=== PATIENT | male | born 1970 | race Caucasian/White ===

== ENCOUNTER 2018-06-14 13:16 | Emergency (ER) | payer MEDICAID ==
[~2018-06-14] VITALS: Ht 177.8 cm; Wt 73.0 kg
[2018-06-14 13:22] VITALS: BP 153/96
[2018-06-14] MEDS ORDERED: TETanus/Pertussis (Acell)/Diphther VAC/PF (Tdap-Adult) 0.5ml syringe IMVAC ONE (14:35)
== END 2018-06-14 15:09 | disposition home or self-care (01) ==
LOC: ER 13:17
DX: S90.851A Superficial foreign body, right foot, initial encounter (principal); F12.90 Cannabis use, unspecified, uncomplicated; W45.8XXA Other foreign body or object entering through skin, initial encounter; Y93.89 Activity, other specified; Y92.89 Other specified places as the place of occurrence of the external cause; Y99.8 Other external cause status
CPT/HCPCS: 10120; 73630; 90471; 90715; 99284; A6255

== ENCOUNTER 2025-07-18 18:06 | Inpatient (IN) | payer MEDICAID ==
[~2025-07-18] VITALS: Ht 177.8 cm; Wt 77.2 kg
[2025-07-18] VITALS (7 sets, daily range): BP systolic 101–115; BP diastolic 62–82; PULSE 14–122; RESP 19–46; O2SAT 95–100
--- NOTE | 2025-07-18 18:17 | ELECTROCARDIOGRAPH REPORT ---
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 Meng Stover Measurements Intervals [place] Rate: 125 P: 43 IA: 140 QRS: -42 QRSD: 91 T: 52 QT: 291 QTc: 420 Interpretive Statements Sinus tachycardia Probable left atrial enlargement Probable inferior infarct, recent Posterior infarct, acute (LCx) Abnormal lateral Q waves ST depression V1-V3, suggest recording posterior leads Artifact in lead(s) II,III,aVL,aVF,V3,V4 Electronically Signed On 07-22-2025 19:21:[address] Meng Stover Please click the below link to view image of tracing.
[2025-07-18] MEDS: albuterol 2.5 MG/3 ML nebule NEB ONE (18:24)
[2025-07-18] MEDS: metoprolol tartrate 1mg/ml inj IV ONE (18:25)
[2025-07-18] MEDS: dexamethasone sod phosphate 10mg/ml inj IV ONE (18:25)
[2025-07-18] MEDS ORDERED: heparin 10,000 units/1 ML INJ IV ONE (18:25)
[2025-07-18 18:34] LABS: MEAN PLATELET VOLUME 7.5 FL (7.4-10.4); RED CELL DISTRIBUTION WIDTH 15.9 % (11.5-14.5)
[2025-07-18] MEDS: morphine 4 MG/ML inj SYRINge IV ONE (18:36)
[2025-07-18] MEDS: magnesium sulf-water 2g/50mL 50 ML IV ONE (18:36)
[2025-07-18 18:37] LABS: ABG BASE EXCESS -8.5 mmol/L (-2.0-3.0); ABG HCO3 18.0 mmol/L (21.0-28.0); ABG OXYGEN SATURATION 98.7 % (94.0-98.0); ABG PCO2 (T) 41.0 mmHg (35.0-48.0); ABG PH (T) 7.262 (7.350-7.450); ABG PO2 (T) 164.4 mmHg (83.0-108.0); FCOHb 0.3 % (0.5-1.5); FHHb 1.3 % (0.0-5.0); FIO2 50.0 mmHg/%; FMetHb 0.1 % (0.0-1.5); FO2Hb 98.3 % (94.0-98.0); MODE MASK - BIPAP; PATIENT TEMPERATURE 37.2; TOTAL HEMOGLOBIN 14.0 G/dl (13.5-17.5)
[2025-07-18] MEDS: heparin 10,000 units/1 ML INJ IV ONE (18:37)
[2025-07-18] MEDS: heparin 25,000 UNIT/250ml bag 250 ML IV PRN (18:38)
[2025-07-18] MEDS: MESSAGE TO NURSING IV ONE (18:39)
[2025-07-18 18:42] LABS: APTT 25 SECONDS (22-32); INR 1.1 INR
--- NOTE | 2025-07-18 18:43 | Physician Documentation ---
History of Present Illness ~ Chief Complaint: Respiratory Distress Stated Complaint: DIFF BREATHING Time Seen by MD: 18:10 HPI This is a 55-year-old gentleman who presented for evaluation of shortness a breath for the last 24 hours. Began suddenly without any obvious provocation. Never experienced anything like that. Denies any current chest pain. No particular palliating factors, it is exertional and positional. He did not attempt to treat it. It is unclear why he waited 24 hours before presenting to the emergency department. I he reports history of smoking, methamphetamine use. History, review of systems, physical examination are severely limited by clinical condition. Medication Reconciliation Allergies: Coded Allergies: No Known Allergies (Unverified , 06/14/18) Past Medical History Past Medical History: Kidney Stones Past Surgical History: no surgical history Smoking Status: Current every day smoker Alcohol Use: None Drug Use: marijuana Lives with: Spouse Lives In: Home Review of Systems ROS Limited as above Physical Exam Vital Signs: Temperature: 97.9, Source: Axillary, Heart Rate: 122, Respiratory Rate: 46, BP: 201/132, Pulse Oximetry: 100, Weight: 82.100 Oxygen Flow Rate: 8.0 Physical Exam GENERAL: Awake, alert, oriented, GCS 15, severe respiratory distress, mottled and moribund appearing, answers questions in single words, follows commands appropriately. Brought in from triage in the wheelchair immediately placed in bed four. Myself and full resuscitative team available. HEENT: Atraumatic, normocephalic, pupils equal, extraocular muscles intact, sclerae anicteric, mucus membranes moist, oropharynx is clear, no stridor. NECK: supple, full active range of motion, trachea midline, no thyromegaly, no lymphadenopathy, no JVD. CARDIOVASCULAR: Tachycardic and regular rate/rhythm, no murmurs/gallops/rubs, Pulses are 2+ in all extremities and symmetric. Capillary refill less than 2 seconds. PULMONARY: Severely labored, good air movement severe respiratory distress, speaking in one word sentences, coarse breath sounds bilaterally, no wheezing, no ronchi, bilateral whole lung rales, notable accessory muscle use. GASTROINTESTINAL: Soft, non-tender, non-distended, normal active bowel sounds, no organomegaly, no pulsatile masses, no CVA tenderness. NEUROLOGIC: Lucid with normal mental status. Normal facial symmetry. Moves all extremities symmetrically and with purpose. No truncal ataxia. Speech is fluid without evidence of dysarthria or aphasia, no focal deficits appreciated. MUSCULOSKELETAL: There is full range of motion of all extremities. There is no joint pain or joint swelling or joint erythema. There is no muscle pain or tenderness or swelling. EXTREMITIES: Cool, diaphoretic, mottled, very poorly-perfused, acro and lip cyanosis, no clubbing, no edema, no acute deformities. Skin: Diaphoretic, cool and mottled, old well-healed skin picking lesions consistent with a methamphetamine use admitted with the patient, no jaundice, no petechiae orpurpura. No ecchymosis. PSYCHIATRIC: Understandably anxious affect, normal insight, normal concentration. Focused exam: [] Progress Results/Orders Results/Orders Orders - NATHAN BRAND DO Abg (Arterial Blood Gas) (07/18/25 18:10) ESR (07/18/25 18:10) C-Reactive Protein (07/18/25 18:10) Pt Inr (07/18/25 18:10) PTT (07/18/25 18:10) Culture Blood (07/18/25 18:10) Chest,Single View (07/18/25 18:10) Svn Treatment (07/18/25 18:10) PBNP (07/18/25 18:10) MG (07/18/25 18:10) TSH (07/18/25 18:10) Free T4 (07/18/25 18:10) Monitor (07/18/25 18:10) Saline Lock (07/18/25 18:10) Azithromycin/Ns 500mg/250ml (Zithromax/N (07/18/25 18:10) CMP (07/18/25 18:10) Hs Troponin I W Calculations (07/18/25 18:10) Hs Troponin I W Calculations (07/18/25 20:10) Hs Troponin I W Calculations (07/18/25 21:10) Lacticsepsis (07/18/25 18:10) Magnesium Sulf-Water 2g/50ml (Magnesium (07/18/25 18:10) Heparin 25,000 Unit/250ml Bag (Heparin 2 (07/18/25 18:25) Heparin 10,000 Unit/Ml 1ml (Heparin 10,0 (07/18/25 18:25) Cbc/Diff (07/19/25 03:00) Cbc/Diff (07/20/25 03:00) Cbc/Diff (07/21/25 03:00) Cbc/Diff (07/22/25 03:00) Cbc/Diff (07/23/25 03:00) Nitroglycerin-Tridil 50mg/D5w (Tridil (N (07/18/25 18:35) Completed Orders - NATHAN BRAND DO Electrocardiogram (07/18/25 18:10) Cbc/Diff (07/18/25 18:10) Dexamethasone Inj (Decadron 10mg/Ml Inj) (07/18/25 18:10) Albuterol 2.5mg/3ml Nebule (Proventil 2. (07/18/25 18:10) Metoprolol Tartrate Inj (Lopressor Iv) (07/18/25 18:20) Morphine 4mg/Ml Inj. (Morphine Inj.) (07/18/25 18:20) Heparin 10,000 Unit/Ml 1ml (Heparin 10,0 (07/18/25 18:35) Message To Nursing (07/18/25 18:35) Medications Received in ER Medications (Trade) Dose Ordered Sig/Juli Route PRN Reason Start Time Stop Time Status Last Admin Dose Admin (Decadron 10mg/ ml inj) 10 mg ONCE ONCE IV 07/18/25 18:10 07/18/25 18:17 DC 07/18/25 18:25 10 MG (Proventil 2.5 MG/3ML nebule) 10 mg ONCE ONCE NEB 07/18/25 18:10 07/18/25 18:14 DC 07/18/25 18:24 10 MG (Lopressor IV) 5 mg ONCE ONCE IV 07/18/25 18:20 07/18/25 18:21 DC 07/18/25 18:25 5 MG Vital Signs 07/18/25 07/18/25 07/18/25 07/18/25 18:14 18:24 18:25 18:26 Temp 97.9 Pulse 124 14 105 Resp 43 43 43 B/P (MAP) 209/132 Pulse Ox 60 100 O2 Flow Rate 0 8.0 FiO2 50 07/18/25 18:26 Pulse 122 Resp 46 Pulse Ox 100 Laboratory Tests Test 07/18/25 18:18 07/18/25 18:34 White Blood Count 17.5 H Red Blood Count 5.07 Hemoglobin 14.1 Hematocrit 44.4 Mean Corpuscular Volume 87.6 Mean Corpuscular Hemoglobin 27.9 Mean Corpuscular Hemoglobin Concent 31.8 L Red Cell Distribution Width 15.9 H Platelet Count 527 H Mean Platelet Volume 7.5 Neutrophils (%) (Auto) 55.8 Lymphocytes (%) (Auto) 31.4 Monocytes (%) (Auto) 8.6 Eosinophils (%) (Auto) 3.2 Basophils (%) (Auto) 1.0 Neutrophils # (Auto) 9.7 H Lymphocytes # (Auto) 5.5 H Monocytes # (Auto) 1.5 H Eosinophils # (Auto) 0.6 Basophils # (Auto) 0.2 CBC Comment Coagulation Comments Chemistry Comments Blood Gas Specimen Type Arterial Blood Gas Puncture Site Lr O2 Saturation 98.7 H Arterial Blood pH (Temp corrected) 7.262 L Arterial Blood pCO2 (Temp correct) 41.0 Arterial Blood pO2 (Temp corrected) 164.4 H Arterial Blood PO2/FiO2 Ratio 3.26 Arterial Blood HCO3 18.0 L Arterial Blood Base Excess -8.5 L Arterial Blood Oxyhemoglobin 98.3 H Arterial Blood Carboxyhemoglobin 0.3 L Arterial Blood Methemoglobin 0.1 Arterial Blood Deoxyhemoglobin 1.3 Macario Test Na Blood Gas Hemoglobin 14.0 Blood Gas Temperature 37.2 Blood Gas Modality Mask - bipap FiO2 50.0 EKG/XRAY/CT/US/VASC/MRI EKG : Additional Comment Initial EKG was obtained and interpreted by myself showing sinus tachycardic, rate of 125, normal UT interval, narrow QRS, no QT prolongation, left axis deviation, ST-elevation in two, three, AVF with a ST-depression in the wanted aVL, as well as Q-waves in inferior leads concerning for subacute myocardial infarction. After patient's heart rate was slow down with the beta blockers, it EKG still shows sinus rhythm, 96, normal UT interval, narrow QRS, prolonged QTC of 510, left axis, Q-wave and ST-elevation in two, three, AVF with reciprocal depressions. Both EKGs a concerning for STEMI. Medical Decision Making Findings Facility Status: ED Holds, RME process The plan was discussed with the patient, who demonstrates clear understanding of the plan and is in agreement with the plan unless otherwise noted in the chart. All questions have been answered, all concerns were addressed unless otherwise documented. I was available throughout their ED stay for frequent reassessment and questions. Differential Diagnoses (considered and possible or likely): [ACS, CHF, COPD, pneumonia, occult bacteremia, cardiogenic shock, less likely PE] ??Differential Diagnoses (considered and unlikely, not requiring evaluation currently): [Unlikely pneumothorax] MDM Data Please see [facility] for the following: Independent Historians and external Records Review. Historian: [Patient] Independent Historians: ?[Record review] Medication Management: [Reviewed medication list] Social History and determinants: [Reviewed] Please see the body of the note for the following: Any independent interpretations of ECG, imaging studies. All vitals signs/haemodynamics, ordered tests were independently reviewed and interpreted by myself. 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 reviewed and interpreted by me] Additionally notably showing: [] Tests considered but not ordered include: [] Social Determinants of Health Impact: Patient was evaluated in [facility] [place] to healthcare due to below par ratio of patient to medical providers. [] Comorbid Conditions Impacting Present Evaluation and Care/Treatment: [] Management Discussions with other Healthcare Providers: [] Treatment and Disposition Medication Management (Given or considered): []. See EMR for details Consideration for Hospitalization/Escalation/Deescalation of Care: Admission for observation has been considered, [however the patient is able to tolerate p.o., their symptoms are controlled, they are able to rely on oral medications, and their chief complaint/diagnosis can be managed on outpatient basis.] ?ED Course:?[Date: Jul 18, 2025 Time: 18:19 EKG was obtained and despite of sinus tachycardia consistent with a ST-elevation myocardial infarctions in i nferior leads with a reciprocal depressions in lateral leads, profound Q-waves noted concerning for subacute myocardial infarction. What STEMI was activated. Case was discussed with Dr. Stiles, who recommends slowing him down with beta blockers, aspirin, heparin, nitro drip of he remains hypotensive, we will see patient. ] ?Shared decision making:?[] Code status:?FULL Please see the full Electronic Medical Record for full details of nursing documentation, medications list, other records of complete past medical history and conditions, vital signs, laboratory studies, and any radiologic study interpretations by radiologists. Portions of this note were completed using [employer] dictation software and as a result there may exist minor errors in spelling. I have reviewed elements of past family and social history and agree as included in note. Departure Referrals: NO PRIMARY CARE PROVIDER (PCP) Critical Care Note Critical Care Note CRITICAL CARE TIME: [75] minutes Treatments/Evaluations: Close monitoring and treatment of unstable vital signs, cardiorespiratory, and neurologic status, while maintaining tight balance of fluid, respiratory, and cardiac interventions. This time includes discussing the case with the patient and the patients family. This time does not include all procedures stated elsewhere in this record. This time also includes reviewing old records, labs and radiological studies. This time includes examining and re- examining the patient. Additionally, this time also includes arranging care with admitting and consulting physicians. Signature Scribe Signature: No scribe Attestation: Date: Jul 18, 2025 Time: 18:45 This note accurately reflects clinical decisions, work performed by myself, Nathan Brand, NATHAN SAN DO Jul 18, 2025 18:43
[2025-07-18 18:44] LABS: CREATININE 1.77 MG/DL (0.60-1.10); TOTAL CARBON DIOXIDE 21.0 MMOL/L (24-32); eCRCL 48 ML/MIN; eGFR 40 ML/MIN
[2025-07-18] MEDS ORDERED: midazolam 1 mg/ML 2ml injection ONE (18:50)
[2025-07-18] MEDS ORDERED: heparin 1,000unit/ml 10ml vial 10 ML ONE (18:50)
[2025-07-18] MEDS ORDERED: LIDOcaine 1% (10mg/ml) 2ml vial ONE (18:50)
[2025-07-18] MEDS ORDERED: iohexol 350 MG/ML 50ML vial IV ONE (18:50)
[2025-07-18] MEDS: aspirin 300mg supp.rect RC ONE (18:50)
[2025-07-18] MEDS ORDERED: verapamil 2.5 mg/ml inj IV ONE (18:50)
[2025-07-18] MEDS ORDERED: fentaNYL/PF 50MCG/1 ML 2ML syringe ONE (18:50)
--- NOTE | 2025-07-18 18:50 | RADIOLOGY REPORT ---
EXAM: DI CHEST,SINGLE VIEW HISTORY: Shortness a breath TECHNIQUE: 1 view of the chest COMPARISON: None FINDINGS/IMPRESSION: LUNGS: Central pulmonary vascular congestion with peripheral interstitial edema. Correlate for significant volume overload. Trace possible right-sided pleural effusion. MEDIASTINUM: Unremarkable BONES: No acute osseous abnormality OTHER: None
[2025-07-18] MEDS ORDERED: heparin 1,000 UNITS/NS 500ml 500 ML ONE (18:51)
[2025-07-18] MEDS ORDERED: nitroGLYCERIN 500mcg/5mL D5W 0 ML IV ONE (18:51)
[2025-07-18 18:53] LABS: PRO BRAIN NATRIURETIC PEPTIDE 9780 PG/ML (0-125)
[2025-07-18] MEDS: azithromycin/NS 500mg/250ml 250 ML IV ONE (18:57)
[2025-07-18] MEDS: potassium Cl 20 mEq SR tablet PO STA (19:07)
[2025-07-18] MEDS: nitroGLYCERIN-Tridil 50MG/D5W 250 ML IV PRN (19:11)
--- NOTE | 2025-07-18 21:23 | HISTORY AND PHYSICAL ---
History & Physical - Short Providers to CC ~ History of Present Illness Chief Complain & History SOB This is a 55-year-old gentleman who presented for evaluation of shortness a breath for the last 24 hours. Began suddenly without any obvious provocation. Never experienced anything like that. Denies any current chest pain. No particular palliating factors, it is exertional and positional. He did not attempt to treat it. It is unclear why he waited 24 hours before presenting to the emergency department. pmh substance abuse + troponins and EKG changes refused cath, cardiology aware, started on heparin gtt now on 6 L nasal canula no compliants currently s/p lasix with 800cc UOP s/p azithro Allergies: Coded Allergies: No Known Allergies (Unverified , 06/14/18) Exam Last recorded Lab results: 07/18/25181707/18/251817 Vitals: Vital Signs Date Time Temp Pulse Resp B/P (MAP) Pulse Ox O2 Delivery O2 Flow Rate FiO2 07/18/25 19:11 131/107 07/18/25 18:44 82 32 100 07/18/25 18:26 8.0 07/18/25 18:24 50 07/18/25 18:14 97.9 Diagnostic Data Diagnostic Data: Laboratory Tests Test 07/18/25 18:18 Prothrombin Time 10.9 SECONDS (9.0-12.0) INR International Normalized Ratio 1.1 INR Activated Partial Thromboplast Time 25 SECONDS (22-32) Coagulation Comments Advance Care Planning Advanced Care planning: N/A Problem\Assessment\Plan Problems: (1) Sepsis (2) NSTEMI (non-ST elevated myocardial infarction) (3) Acute respiratory failure Additional Plan NSTEMI ARF r/o sepsis cont heparin gtt cards to evaluate in am regarding ischemia w/up patient agreeable echo empiric zosyn concern for sepsis rodriguez cx check procal trend lactic CCT 60 mins using HIPPA compliant a.v technology AMARILYS MCKENZIE MD Jul 18, 2025 21:23
[2025-07-18] MEDS: piperacillin/tazo 3.375gm/50ml 50 ML IV SCH (21:25)
--- NOTE | 2025-07-18 21:40 | ELECTROCARDIOGRAPH REPORT ---
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 Meng Stover Measurements Intervals [place] Rate: 96 P: 41 VT: 146 QRS: -44 QRSD: 103 T: 51 QT: 403 QTc: 510 Interpretive Statements Sinus rhythm Probable left atrial enlargement Probable inferior infarct, recent Posterior infarct, acute (LCx) Abnormal lateral Q waves Prolonged QT interval Baseline wander in lead(s) I,II,aVR Electronically Signed On 07-22-2025 19:21:[address] Meng Stover Please click the below link to view image of tracing.
[2025-07-18 21:43] LABS: CREATININE 1.64 MG/DL (0.60-1.10); TOTAL CARBON DIOXIDE 25.8 MMOL/L (24-32); eCRCL 52 ML/MIN; eGFR 44 ML/MIN
[2025-07-18 23:48] LABS: LEUKOCYTE ESTERASE ,URINE NEGATIVE (Neg); NITRITES, URINE NEGATIVE (Neg); OCCULT BLOOD,URINE TRACE-INTACT (Neg)
[2025-07-18 23:52] LABS: UA COLLECTION TYPE CLN CATCH MIDSTREAM
[2025-07-18 23:55] LABS: SQUAMOUS EPITHELIAL CELL,UR NONE SEEN /LPF (FEW)
[2025-07-19] VITALS (16 sets, daily range): BP systolic 87–117; BP diastolic 42–86; PULSE 71–90; RESP 15–23; TEMP 97.1–97.7; O2SAT 90–100
[2025-07-19] MEDS: MESSAGE TO NURSING IV ONE ×5 (01:45→23:07)
[2025-07-19] MEDS: heparin 10,000 units/1 ML INJ IV PRN (01:51)
--- NOTE | 2025-07-19 05:00 | CONSULTATION ---
DATE OF CONSULTATION: 07/18/2025 DICTATING PHYSICIAN: ÓSCAR Stiles MD CARDIOLOGY CONSULTATION REQUESTING PHYSICIAN: Nathan Howard DO, ER physician. CARDIOLOGY: ÓSCAR Stiles M.D. HISTORY OF PRESENT ILLNESS: The patient is a 55-year-old male with history of smoking and methamphetamine abuse, who came in for evaluation of shortness of breath for the last 1 to 1-1/2 days. The patient denies any chest pain. He came to the ER and was found to be hypoxic. Blood pressure in the 200/100 range. Chest x-ray showed pulmonary congestion. He was put on BiPAP and Cardiology was consulted. He was found to have a troponin elevated at 3840. EKG showed nonspecific ST-T changes. The patient claims that he does not have any further history of myocardial infarction or congestive heart failure. No history of stent, palpitation, syncopal episode. Denied diabetes, hypertension and hyperlipidemia. However, he is hypertensive today. He has a history of kidney stone. PAST MEDICAL HISTORY: Possible COPD with prior history of smoking. The patient started smoking at age 17 and continues to smoke about 1/2 to 1 pack per day. PAST SURGICAL HISTORY: He has had right inguinal hernia repair at age 2 and 3 years old. FAMILY HISTORY: Father at age 75 with CKD, was on dialysis. Mother at age 70 because of diabetes and complications. SOCIAL HISTORY: He uses marijuana and methamphetamine. Last use of methamphetamine was yesterday. 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 He lives with his . He has 2 sons of his own, 3 from his . His 's name is Shani, telephone #[phone]. MEDICATIONS: At home, none. REVIEW OF SYSTEMS: HEENT: Wears reading glasses, no hearing impairment. RESPIRATORY: Exertional shortness of breath. MUSCULOSKELETAL: Occasional arthralgias. CENTRAL NERVOUS SYSTEM: No stroke, TIA, or seizure. PSYCHIATRIC: No anxiety or depression. SKIN: None. ENDOCRINE: None. PHYSICAL EXAMINATION: GENERAL: The patient is conscious, alert, oriented, on BiPAP, short of breath. VITAL SIGNS: Pulse was 122, dropped down with the medications to 80s and 90s. Blood pressure was 200/100, now is controlled with medications. NECK: Carotids are equally well felt. CARDIAC: Regular rate and rhythm. S1 and S2 normal. No S3 and S4. LUNGS: Showed decreased breath sounds bibasilar. ABDOMEN: Soft. Bowel sounds present. No hepatosplenomegaly. EXTREMITIES: Decreased pulses. LABORATORY DATA: WBC 17.5, hemoglobin 14.1, hematocrit 44.4, platelet count of 527. Sodium 142, potassium 3.1, chloride 103, carbon dioxide 21, BUN 18, creatinine 1.77. Lactic acid 13.5. Calcium 8.9. C-reactive protein 215. ProBNP was 9780. DIAGNOSTIC DATA: Chest x-ray shows pulmonary vascular congestion, congestive heart failure evidence. ASSESSMENT AND PLAN: * A 55-year-old male with sudden onset of shortness of breath with Q-waves in the inferior leads. No obvious ST elevation. Posterior leads did not show ST elevations. Recommended aspirn, heparin, nitroglycerine, beta-blockers. Option of further evaluation of coronary angiography. Risks and benefits and alternative options discussed with the patient. The patient agrees and we will arrange for the same. * Congestive heart failure. Get echocardiogram. Gentle diuresis. Keep him volume euvolemic. * Hypertension and hyperlipidemia. Recommend to keep blood pressure less than 130 and LDL less than 70 mg%. Other comorbidities include chronic tobacco use, possible COPD. * History of methamphetamine, marijuana use, obesity, hypokalemia. Counseled on risk factor modification. * Possible underlying sepsis. The patient will be admitted to the demand generator manager for further evaluation of underlying sepsis. ÓSCAR Stiles MD TID: [id number] RECEIPT: [id number] BREANNA/FRANCO/LESLIE
[2025-07-19 05:38] LABS: MEAN PLATELET VOLUME 7.9 FL (7.4-10.4); RED CELL DISTRIBUTION WIDTH 15.5 % (11.5-14.5)
[2025-07-19 06:20] LABS: CHOL/HDL RATIO 2.4 (0.00-4.99); CREATININE 1.56 MG/DL (0.60-1.10); LDL CHOLESTEROL 54 MG/DL (50-100); PRO BRAIN NATRIURETIC PEPTIDE 8652 PG/ML (0-125); TOTAL CARBON DIOXIDE 24.8 MMOL/L (24-32); eCRCL 55 ML/MIN; eGFR 46 ML/MIN
[2025-07-19] MEDS: aspirin 81mg, enteric-coated 1 TAB TABLET.DR PO SCH (07:10)
[2025-07-19] MEDS: carvedilol 6.25mg tablet PO SCH (08:00)
[2025-07-19] MEDS: nicotine 14mg patch - 24hr TD ONE (13:45)
--- NOTE | 2025-07-19 15:36 | CARDIOLOGY REPORT ---
APPROVED REPORT EXAM: Comprehensive 2D, Doppler, and color-flow Echocardiogram. Patient Location: 2010 A Blood Pressure: 116/79 mmHg Heart Rate: 89 bpm Rhythm: Sinus Rhythm Indications Congestive Heart Failure Shortness of Breath [facility] Detail Drafter: MD Mynor (Consult) Previous echo: None 2D Dimensions RVDd 4.0 cm LA Diam 4.7 cm RA Minor 5.0 cm LVOT Diameter 2.56 (1.8-2.4cm) Ao Asc Diam. 4.05 cm IVC 17.44 mm CO 5.9 L/min M-Mode Dimensions RVDd 3.38 (2.1-3.2cm) Left Atrium(MM) 3.52 (2.5-4.0cm) IVSd 0.88 (0.7-1.1cm) LVDd 5.95 (4.0-5.6cm) Aortic Root 4.57 (2.2-3.7cm) PWd 1.05 (0.7-1.1cm) Aortic Cusp Exc 2.61 (1.5-2.0cm) IVSs 1.98 cm LVDs 4.65 (2.0-3.8cm) FS (%) 20 % PWs 1.40 cm ESV(Teich) 99.4 ml LVEF(%) 41 (>50%) Biplane 2D LA Volumes LA ESV A4C 69.57 mL/m2 Aortic Valve AoV Peak Wiley. 148.5 cm/s AoV VTI 22.5 cm AO Peak GR. 8.8 mmHg AO Mean GR. 4 mmHg LVOT VTI 16.10 cm LVOT Peak Wiley. 98.7 cm/s MARCO(VTI)/BSA 3.68 cm2/m2 MARCO (VTI) 3.68 cm2 AI P 1/2 Time 424 ms Mitral Valve MV E Velocity 116.0 cm/s MV Peak Gr. 8 mmHg MV DECEL TIME 148 ms MV A Velocity 77.8 cm/s MV PHT 48 ms E/A Ratio 1.5 MVA (PHT) 4.58 cm2 MR VMax 649.0 cm/s MV VMax 138.8 cm/s MR PG Max 168.5 mmHg TDI Medial E' P. V 8.41 cm/s E/Medial E' 13.8 Tricuspid Valve TR P. Velocity 358 cm/s RAP ESTIMATE 10 mmHg TR Peak Gr. 51 mmHg RVSP 61 mmHg Pulmonary Vein S1 Velocity 52.9 cm/s D2 Velocity 89.3 cm/s PVa Velocity 37.1 cm/s PVa Duration 120 msec LEFT VENTRICLE The LV is dilated in size with normal wall thickness. Inferior hypokinesia seen. Overall systolic function is [id number] impaired. Overall LVEF is about 45-50%. Mild inferior hypokinesia seen. RIGHT VENTRICLE Right ventricle is moderate to severely dilated with normal function. Estimated PA systolic pressure is 61 mmHg. ATRIA Left atrium is moderately dilated. Possible PFO is noted with spectral and color Doppler. Right atrium is severely dilated. AORTIC VALVE Trileaflet AV appears sclerotic without stenosis. Mild insufficiency. MITRAL VALVE Mild MV annular calcification and annular thickenig. No stenosis. Moderate to severe regurgitation with flow reversal in the pulmonary veins. TRICUSPID VALVE TV appears structurally normal with moderate regurgitation. PULMONIC VALVE Normal PV without stenosis, mild insufficiency. GREAT VESSELS Aortic root is dilated. It measures 4.65 cm. Proximal ascending aorta is dilated. PERICARDIUM Normal pericardium. No pericardial effusion seen. Other Information Study Quality: Adequate Conclusion Overall LVEF is about 45-50%. Mild inferior hypokinesia seen. The LV is dilated in size with normal wall thickness. Inferior hypokinesia seen. Overall systolic function is [id number] impaired. Right ventricle is moderate to severely dilated with normal function. Estimated PA systolic pressure is 61 mmHg. Left atrium is moderately dilated. Possible PFO is noted with spectral and color Doppler. Right atrium is severely dilated. Trileaflet AV appears sclerotic without stenosis. Mild insufficiency. Mild MV annular calcification and annular thickenig. No stenosis. Moderate to severe regurgitation with flow reversal in the pulmonary veins. TV appears structurally normal with moderate regurgitation. Normal PV without stenosis, mild insufficiency. Aortic root is dilated. It measures 4.65 cm. Proximal ascending aorta is dilated. Normal pericardium. No pericardial effusion seen.
--- NOTE | 2025-07-19 15:42 | PROGRESS NOTE ---
Progress Note Cardiology Providers to CC ~ Subjective Subjective Patient seen and examined this morning. Overall he is feeling better. No chest pain. His shortness of breath has resolved and he is not on BiPAP. Objective Result Diagram: 07/19/2545107/19/25451 Objective General: Normal body habitus, no acute distress, HEENT: Sclerae clear, PERRL, gums without lesions or bleeding, oropharynx clear without erythema or exudate. Neck: Supple without enlargement of the thyroid, or lymphadenopathy, Chest: Normal size and shape, no tenderness, nonlabored breathing, Breath sounds it diminished bibasilarly but improved Heart: Regular in rate and rhythm, S1 and S2 normal, no S3-S4 or murmurs. Abdomen: Soft, nontender, no organomegaly, bowel sounds present. Extremities: No edema cyanosis or clubbing. Coagulation Studies Laboratory Tests Test 07/18/25 18:18 07/19/25 14:51 Prothrombin Time 10.9 SECONDS (9.0-12.0) INR International Normalized Ratio 1.1 INR Activated Partial Thromboplast Time 25 SECONDS (22-32) Coagulation Comments Problem\Assessment\Plan Additional Plan 1. * A 55-year-old male with sudden onset of shortness of breath with Q-waves in the inferior leads. No obvious ST elevation. Posterior leads did not show ST elevations. Recommended aspirn, heparin, nitroglycerine, beta-blockers. Option of further evaluation of coronary angiography. Risks and benefits and alternative options discussed with the patient. However subsequently patient decided to not to have coronary angiography and to be treated medically. Continue aspirin and beta blockers Overall LVEF is about 45-50%. Mild inferior hypokinesia seen. The LV is dilated in size with normal wall thickness. Inferior hypokinesia seen. Overall systolic function is ysxg-in-axvezzvzjx impaired. Right ventricle is moderate to severely dilated with normal function. Estimated PA systolic pressure is 61 mmHg. Left atrium is moderately dilated. Possible PFO is noted with spectral and color Doppler. Right atrium is severely dilated. Trileaflet AV appears sclerotic without stenosis. Mild insufficiency. Mild MV annular calcification and annular thickenig. No stenosis. Moderate to severe regurgitation with flow reversal in the pulmonary veins. TV appears structurally normal with moderate regurgitation. Normal PV without stenosis, mild insufficiency. Aortic root is dilated. It measures 4.65 cm. Proximal ascending aorta is dilated. Normal pericardium. No pericardial effusion seen. 2. * Congestive heart failure. Get echocardiogram. Gentle diuresis. Keep him volume euvolemic. 3. 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 Counseled on methamphetamine use cessation. Recommend GDM T with, spironolactone, beta blockers SGLT2 inhibitor and Entresto. 4. * Hypertension and hyperlipidemia. Recommend to keep blood pressure less than 130 and LDL less than 70 mg%. Other comorbidities include chronic tobacco use, possible COPD. 5. * History of methamphetamine, marijuana use, obesity, hypokalemia. Counseled on risk factor modification. 6. * Possible underlying sepsis. Elevated white count. Patient on antibiotic. KASSIDY ECHEVARRIA MD Jul 19, 2025 15:42
--- NOTE | 2025-07-19 20:45 | CONSULTATION REPORT ---
Consult Providers to CC ~ History of Present Illness Reason for Admit\Complaint: NSTEMI/ acute HFrEF/cardiomyopathy/ acute respiratory failure History of Present Illness This is a 55-year-old male who presented to the ED with shortness of the breath for one 2-1/2 days did not have any chest pain the patient did have significant hypertension with a blood pressure 200/100 range the patient has had pulmonary congestion on chest x-ray the patient is requiring BiPAP in his discovered the patient has a NSTEMI with a serum troponin initially of 3840 which downtrended the patient is evaluated by Dr. Stiles starch crab who offered the patient a cardiac catheterization however the patient declined and requested medical management the patient is currently on a heparin drip. The patient was initially admitted to the ICU and now is transferred to PCU floor where escalator constructor Dr. King requested that the hospitalist service consult and take over care as the patient has stabilized. Patient states he feels much better he is currently on room air and states he is going to quit methamphetamines does he has has a friend that of complications secondary to methamphetamine inhalation use disorder he informs me that he had 10 years clean when taking care of his parents who both went on to pass away. After he lost his parents he started using methamphetamines again. Allergies: Coded Allergies: No Known Allergies (Unverified , 06/14/18) Past Medical History Past Medical History Kidney stones, COPD Past Surgical History Surgical History Comment Inguinal hernia repair on the left at age [age] and on the right at age [age] Family History Family History: FH: diabetes mellitus MOTHER, , Cause: Diabetes mellitus, Not a twin FH: kidney failure FATHER, , Cause: Renal failure, Not a twin Past Social History Social History Comment He smokes 1/2-1 pack of cigarettes a day, does not drink alcohol, smokes marijuana and methamphetamines daily, full code status ROS ROS Except for positives in the HPI the rest of the 14 point review systems is negative Exam Vitals: Vital Signs Date Time Temp Pulse Resp B/P (MAP) Pulse Ox O2 Delivery O2 Flow Rate FiO2 07/19/25 18:30 91 07/19/25 12:17 97.7 20 117/86 (96) 98 Room Air 07/19/25 05:45 2.0 07/18/25 18:24 50 General: Gen. No acute distress alert and oriented 4 Lungs clear to ascultation bilaterally, no wheezes rales or rhonchi appreciated Heart normal sinus rhythm no murmurs rubs or clicks noted Abdomen soft nontender bowel sounds are normoactive Lower extremities no clubbing cyanosis, nor edema appreciated bilaterally Diagnostic Data Last Recorded Lab Results: 07/19/25 0452 07/19/25 0452 Diagnostic Data: Laboratory Tests Test 07/18/25 18:18 07/19/25 14:51 Prothrombin Time 10.9 SECONDS (9.0-12.0) INR International Normalized Ratio 1.1 INR Activated Partial Thromboplast Time 25 SECONDS (22-32) APTT (Heparin Protocol) 43 SECONDS (45-60) L Coagulation Comments Problems: (1) NSTEMI (non-ST elevated myocardial infarction) Additional Plan # NSTEMI- Evaluated by Dr. Stiles starch crab's who offered cardiac catheterization versus medical management the patient elected medical management On heparin drip Cholesterol is well-controlled with triglycerides of 44, total cholesterol 1-2 LDL of 54 and HDL of 42. # HFrEF mild # methamphetamine induced cardiomyopathy On Jardiance P.o. Lasix Carvedilol Spironolactone Entresto # Tobacco use disorder-I spent 12 minutes discussing smoking cessation with the patient including the risk of continuing smoke: Lung cancer, stroke, heart attack, poor wound healing, , risk of MRSA skin infections. The expense of smoking cigarettes and how cigarettes have been scientifically engineered to be as addictive as humanly possible. The patient has accepted a 14 mg nicotine patch. # methamphetamine use disorder Substance use navigator Jenna Faye consult is ordered # chronic marijuana use #COPD- Currently on room air # kidney disease Improving Continue monitor for MADELINE I spent a total of 17 minutes on reviewing various resuscitative measures/ ACP with the patient at the time of admission. The patient has decided on full code status Date of Service: Jul 19, 2025 Billing Provider: ALLEN LOREDO DO Common Visit Codes: [id number] INP/OBS CARE (HIGH) Secondary Visit Codes: 04294-[id number] CHNG SMOKING >10MIN, 70968-XKPJUYPE CARE PLAN 30 MINUTES ALLEN LOREDO DO Jul 19, 2025 20:45
[2025-07-19] MEDS: sacubitril/valsartan 24mg-26mg tablet PO SCH (21:09)
[2025-07-20] VITALS (8 sets, daily range): BP systolic 86–146; BP diastolic 55–87; PULSE 63–92; RESP 12–22; TEMP 97–98.7; O2SAT 92–100
[2025-07-20] MEDS: furosemide 10 MG/1 ML 10ml inj IV ONE (01:33)
[2025-07-20 05:58] LABS: MEAN PLATELET VOLUME 7.9 FL (7.4-10.4); RED CELL DISTRIBUTION WIDTH 15.0 % (11.5-14.5)
[2025-07-20 07:16] LABS: CREATININE 1.46 MG/DL (0.60-1.10); TOTAL CARBON DIOXIDE 27.6 MMOL/L (24-32); eCRCL 58 ML/MIN; eGFR 50 ML/MIN
--- NOTE | 2025-07-20 07:20 | ELECTROCARDIOGRAPH REPORT ---
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 ÓSCAR Stiles Measurements Intervals [place] Rate: 72 P: 65 CO: 163 QRS: -57 QRSD: 91 T: 73 QT: 461 QTc: 505 Interpretive Statements Sinus rhythm Abnormal R-wave progression, early transition Left ventricular hypertrophy Inferior infarct, old Prolonged QT interval Electronically Signed On 07-20-2025 13:51:[address] ÓSCAR Stiles Please click the below link to view image of tracing.
[2025-07-20] MEDS: nicotine 14mg patch - 24hr TD SCH (08:00)
[2025-07-20] MEDS: EMPAGLIFLOZIN 10 MG TABLET PO SCH (09:29)
[2025-07-20] MEDS: MESSAGE TO NURSING IV ONE ×3 (09:32→21:37)
--- NOTE | 2025-07-20 15:45 | PROGRESS NOTE- Residence ---
Progress Note - Resident Providers to CC Resident Creating Document: ANTWON RICHARDS, RES ~ Antibiotic Timeout Antibiotic Ordered?: No Subjective The patient has been evaluated at the bedside. The patient currently is doing better, denies chest pain, shortness of breath, palpitations. Objective Vital Signs Date Time Temp Pulse Resp B/P (MAP) Pulse Ox O2 Delivery O2 Flow Rate FiO2 07/20/25 09:30 73 07/20/25 08:00 18 96 Room Air 07/20/25 06:00 97.7 108/79 (89) 2.0 07/18/25 18:24 50 Physical exam: General: Well alert, well oriented, not confused, not agitated, not in acute distress, well cooperated during the physical. HEENT: Conjunctive are pink, sclerae clear, no icterus, pupil is equal in both sides, reactive to light, no ear discharge, no pharyngeal erythema or an edema. Neck: Supple, no JVD, no lymphadenopathy and thyromegaly. Chest: Equal air entry on both lungs, no additional sounds no rhonchi no wheezing at the moment. Cardiovascular: S1-S2 regular sinus rhythm and, regular rate, no gallops, no rubs, no murmurs Abdomen: No visible peristalsis, Bowel sounds present on auscultation, soft, nontender, no guarding, no rigidity Extremities: No obvious deformities, no pitting edema bilaterally, capillary refill intact, peripheral pulsations are intact on both sides Central Nervous System: No focal neurological deficits, no motor or sensory weakness in all 4 extremities, could move all 4 extremities, 2+ deep tendon reflexes, negative Babinski. Musculoskeletal: No joint swelling, deformities, inflammations, and no scoliosis and back tenderness Skin: Warm and dry. Result Diagram: 07/20/25 0533 07/20/25 0533 Coagulation Studies Laboratory Tests Test 07/18/25 18:18 07/20/25 13:06 Prothrombin Time 10.9 SECONDS (9.0-12.0) INR International Normalized Ratio 1.1 INR Activated Partial Thromboplast Time 25 SECONDS (22-32) APTT (Heparin Protocol) 80 SECONDS (45-60) H Coagulation Comments Assessment Assessment Assessment and plan: 55 years old male patient came to the hospital with chief complaint of shortness of breath. Plan Plan NSTEMI: A: The patient came to the hospital with chief complaint of shortness of breath, while the patient was in the emergency department he was found with troponin levels of [id number]. EKG: Q-waves in the inferior leads. No obvious ST-elevation. Posterior leads did not show ST elevations. Echocardiogram: Overall LVEF is about 45-50%. Mild inferior hypokinesia seen. The LV is dilated in size with normal wall thickness. Inferior hypokinesia seen. Overall systolic function is pyzu-id-pynjbdysbx impaired. ProBNP: 4751-6731. Coronary angiogram versus medical therapy discussed with the patient by Dr. Echevarria. The patient decided for medical therapy. Plan: Follow-up proBNP in a.m. Continue aspirin 81 mg daily. Atorvastatin 40 mg daily. Clopidogrel 75 mg daily. Acute exacerbation of systolic congestive heart failure with reduced ejection fraction of 45%: Methamphetamine induced cardiomyopathy: A: The patient came to the hospital with chief complaint of shortness of breath. Plan: Jardiance 10 mg daily. Lasix 40 mg daily p.o.. Carvedilol 6.25 mg b.i.d.. Spironolactone 25 mg daily. Entresto 24/26 mg daily. Other comorbidities: Chronic marijuana use: COPD: Kidney disease: Continue management as per primary team. Disposition: Continue GDMT and medical therapy for CAD. Antwon Ribeiro Internal Medicine Resident [facility] Patient seen and examined by Dr. SANCHEZ. Patient counseled on cessation of methamphetamine and compliance C with the medication and follow up with PMD. Date of Service: Jul 20, 2025 Billing Provider: KASSIDY ECHEVARRIA MD, FRANCO LUIS, RES Jul 20, 2025 15:45 KASSIDY ECHEVARRIA MD Jul 20, 2025 19:09
--- NOTE | 2025-07-20 22:25 | PROGRESS NOTE ---
Daily Progress Note Providers to CC ~ Antibiotic Timeout Antibiotic Ordered?: Yes Subjective The patient was resting comfortably in bed has no acute complaints he was on room air when I evaluated him without any dyspnea or signs of hypoxemia Objective Vital Signs Date Time Temp Pulse Resp B/P (MAP) Pulse Ox O2 Delivery O2 Flow Rate FiO2 07/20/25 18:30 66 07/20/25 13:00 98.7 12 86/55 (65) 96 Nasal Cannula 2.0 07/18/25 18:24 50 Result Diagram: 07/20/25 0533 07/20/25 0533 Gen. No acute distress alert and oriented 4 Lungs clear to ascultation bilaterally, no wheezes rales or rhonchi appreciated Heart normal sinus rhythm no murmurs rubs or clicks noted Abdomen soft nontender bowel sounds are normoactive Lower extremities no clubbing cyanosis, nor edema appreciated bilaterally Coagulation Studies Laboratory Tests Test 07/18/25 18:18 07/20/25 20:56 Prothrombin Time 10.9 SECONDS (9.0-12.0) INR International Normalized Ratio 1.1 INR Activated Partial Thromboplast Time 25 SECONDS (22-32) APTT (Heparin Protocol) 65 SECONDS (45-60) H Coagulation Comments Problem\Assessment\Plan Problems/Diagnosis: (1) NSTEMI (non-ST elevated myocardial infarction) # NSTEMI- Evaluated by Dr. Stiles digital campaign manager's who offered cardiac catheterization versus medical management the patient elected medical management Heparin drip has been completed Cholesterol is well-controlled with triglycerides of 44, total cholesterol 1-2 LDL of 54 and HDL of 42. Continue aspirin # HFrEF mild # methamphetamine induced cardiomyopathy On Jardiance P.o. Lasix Carvedilol Spironolactone Entresto Dr. Stiles digital campaign manager's is following # Tobacco use disorder-I spent 12 minutes discussing smoking cessation with the patient including the risk of continuing smoke: Lung cancer, stroke, heart attack, poor wound healing, , risk of MRSA skin infections. The expense of smoking cigarettes and how cigarettes have been scientifically engineered to be as addictive as humanly possible. The patient has accepted a 14 mg nicotine patch. # methamphetamine use disorder Substance use navigator Jenna Faye consult is ordered # chronic marijuana use #COPD- Currently on room air # kidney disease Improving Continue monitor for MADELINE I spent a total of 17 minutes on reviewing various resuscitative measures/ ACP with the patient at the time of admission. The patient has decided on full code status # disposition- discharge home in the a.m.-confirmed with Dr. Stiles digital campaign manager's if okayed to discharge. Date of Service: Jul 20, 2025 Billing Provider: ALLEN LOREDO DO Common Visit Codes: [id number] INP/OBS CARE(HIGH) ALLEN LOREDO DO Jul 20, 2025 22:25
[2025-07-21 02:00] VITALS: BP 95/64; PULSE 66; RESP 24; TEMP 98.3; O2SAT 92
[2025-07-21 06:00] VITALS: BP 106/81; PULSE 74; RESP 16; TEMP 97.1; O2SAT 99
[2025-07-21 06:06] LABS: MEAN PLATELET VOLUME 7.8 FL (7.4-10.4); RED CELL DISTRIBUTION WIDTH 15.1 % (11.5-14.5)
[2025-07-21 06:24] LABS: PRO BRAIN NATRIURETIC PEPTIDE 2381 PG/ML (0-125)
[2025-07-21 07:28] VITALS: BP_SYST 109; PULSE 72
[2025-07-21 08:52] LABS: CREATININE 1.45 MG/DL (0.60-1.10); TOTAL CARBON DIOXIDE 24.0 MMOL/L (24-32); eCRCL 59 ML/MIN; eGFR 50 ML/MIN
--- NOTE | 2025-07-21 10:21 | DISCHARGE SUMMARY ---
Discharge Summary Providers to CC ~ Discharge Summary Admission Diagnosis: NSTEMI, acute CHF Hospital Course DATE OF ADMISSION: 07/18/25 DATE OF DISCHARGE: 07/21/25 Discharge Diagnosis\Comment: NSTEMI Acute decompensated systolic heart failure Methamphetamine-induced cardiomyopathy Prerenal MADELINE 2/2 vasomotor nephropathy/CHF Tobacco use disorder methamphetamine use disorder Chronic marijuana use COPD, not in acute exacerbation Left AMA Operations\Procedures: None Consultants: Gristmiller Dr. Stiles, BV Complications: Left AMA Condition on DC: Unstable Discharge Summary: Patient is not medically cleared for discharge. However, patient left AMA in campaign marketing specialist before I was able to assess him. Patient left AMA despite nursing staff explaining risks associated with leaving AMA. *Problems/Diagnosis: (1) NSTEMI (non-ST elevated myocardial infarction) Total Time Spent on D/C: Up to 30 Minutes Date of Service: Jul 21, 2025 Billing Provider: ASA FIORE Common Visit Codes: NOT BILLABLE ASA FIORE Jul 21, 2025 10:21
== END 2025-07-21 07:55 | disposition left against medical advice (07) | DRG 190 ==
LOC: ER 18:07 → ED HOLD 20:08 → CICU 2S 20:30 → PCU 3S 07-19 11:15
PROVIDERS: ADMIT Internal Medicine; ATTEND Internal Medicine
DX: I21.4 Non-ST elevation (NSTEMI) myocardial infarction (principal); N17.0 Acute kidney failure with tubular necrosis; J96.01 Acute respiratory failure with hypoxia; I50.23 Acute on chronic systolic (congestive) heart failure; I42.7 Cardiomyopathy due to drug and external agent; Z53.21 Procedure and treatment not carried out due to patient leaving prior to being seen by health care provider; I11.0 Hypertensive heart disease with heart failure; E78.5 Hyperlipidemia, unspecified; F15.10 Other stimulant abuse, uncomplicated; F17.210 Nicotine dependence, cigarettes, uncomplicated; J44.9 Chronic obstructive pulmonary disease, unspecified
CPT/HCPCS: 36415; 36600; 71045; 80048; 80053; 80061; 81001; 82803; 83605; 83735; 83880; 84145; 84439; 84443; 84484; 85018; 85025; 85610; 85651; 85730; 86140; 87040; 87081; 93005; 93306; 94640; 94660; 94760; 96365; 96375; 99291; A4615; A4620; A6213; A6258; A7015; C1725; C1894; G0378; J0456; J1100; J1644; J1938; J2003; J2250; J2270; J2543; J3010; J3490; J7030; Q9967

== ENCOUNTER 2025-07-29 04:11 | Emergency (ER) | payer MEDICAID ==
[~2025-07-29] VITALS: Ht 177.8 cm; Wt 81.0 kg
--- NOTE | 2025-07-29 04:22 | ELECTROCARDIOGRAPH REPORT ---
[facility] Test Date: 2025-07-29 Test Time: 04:20:09 Pat Name: ADELE VERDUZCO Department: [facility]- Patient ID: [facility]-[id number] Room: Gender: M Compliance Advisor: : 1970 Requested By: SOPHIE WHITLEY Order Number: [id number] Reading MD: Measurements Intervals [place] Rate: 82 P: 55 WV: 162 QRS: -54 QRSD: 89 T: 86 QT: 376 QTc: 439 Interpretive Statements Sinus rhythm Left atrial enlargement Inferior infarct, old Baseline wander in lead(s) II,III,aVR,aVL,aVF,V2,V3,V4,V5,V6 Please click the below link to view image of tracing.
--- NOTE | 2025-07-29 04:36 | Physician Documentation ---
History of Present Illness ~ Chief Complaint: Shortness of Breath Stated Complaint: SHORT OF BREATH Time Seen by MD: 04:27 Mode of Arrival: POV HPI Patient presents to the emergency room with shortness of breath that woke him up that has asleep. He was admitted here last week for an NSTEMI and declined catheterization and left against medical advice. I asked him if he would be willing to do a cardiac catheterization upon this admission he states that he would not. I asked him what happens if he comes to the emergency room with chest pain he states that he does not know. He denies chest pain currently Medication Reconciliation Allergies: Coded Allergies: No Known Allergies (Unverified , 06/14/18) Past Medical History Past Medical History: Kidney Stones Past Surgical History: no surgical history Patient History: FH: diabetes mellitus MOTHER, , Cause: Diabetes mellitus, Not a twin FH: kidney failure FATHER, , Cause: Renal failure, Not a twin Alcohol Use: None Drug Use: marijuana Lives with: Spouse Lives In: Home Review of Systems ROS All review of systems negative except as per HPI Physical Exam Vital Signs: Temperature: 97.9, Source: Oral, Heart Rate: 75, Respiratory Rate: 20, BP: 142/93, Pulse Oximetry: 99, Weight: 80.950 Oxygen Flow Rate: 0 Physical Exam General: Patient is awake, alert, oriented x4 in no acute distress Head: Normocephalic and atraumatic. Eyes: Conjunctival normal. EOMI. PERRL. ENT: Mucous membranes moist. Neck: Supple, trachea is midline. Chest: Clear to auscultation bilaterally without rales, rhonchi, or wheezes. There is no accessory muscle use or retractions. Cardiac: RRR without murmurs, gallops, or rubs. Abd: Soft, nondistended, nontender, with normoactive bowel sounds. No guarding, rebound, or rigidity. Progress Results/Orders Results/Orders Orders - GIO LEE MD Chest,Single View (07/29/25 04:30) Monitor (07/29/25 04:13) Saline Lock (07/29/25 04:13) Oxygen (07/29/25 04:13) Hs Troponin I W Calculations (07/29/25 06:13) Hs Troponin I W Calculations (07/29/25 07:13) Completed Orders - GIO LEE MD Chest,Single View (07/29/25 04:30) Cbc/Diff (07/29/25 04:13) BMP (07/29/25 04:13) PBNP (07/29/25 04:13) Electrocardiogram (07/29/25 04:13) Hs Troponin I W Calculations (07/29/25 04:13) Vital Signs 07/29/25 07/29/25 07/29/25 07/29/25 04:18 04:31 04:31 04:33 Temp 97.9 97.9 97.9 Pulse 82 75 75 Resp 16 20 20 20 B/P (MAP) 144/112 142/93 (109) Pulse Ox 99 99 O2 Flow Rate 0 0 0 Laboratory Tests Test 07/29/25 04:51 07/29/25 04:54 Sodium Level 146 H Potassium Level 4.5 Chloride Level 110 H Carbon Dioxide Level 27.2 Anion Gap 9 Blood Urea Nitrogen 20 H Creatinine 1.40 H Estimated GFR/1.73 m2 52 BUN/Creatinine Ratio 14.3 Glucose Level 120 H Calcium Level 9.0 Troponin I High Sensitivity 426 *H Pro-B-Type Natriuretic Peptide 4276 H Albumin 3.1 L Chemistry Comments White Blood Count 7.6 Red Blood Count 5.18 Hemoglobin 14.6 Hematocrit 43.2 Mean Corpuscular Volume 83.4 Mean Corpuscular Hemoglobin 28.2 Mean Corpuscular Hemoglobin Concent 33.8 Red Cell Distribution Width 15.7 H Platelet Count 238 Mean Platelet Volume 7.9 Neutrophils (%) (Auto) 70.5 Lymphocytes (%) (Auto) 24.8 Monocytes (%) (Auto) 2.3 Eosinophils (%) (Auto) 1.4 Basophils (%) (Auto) 1.0 Neutrophils # (Auto) 5.4 Lymphocytes # (Auto) 1.9 Monocytes # (Auto) 0.2 Eosinophils # (Auto) 0.1 Basophils # (Auto) 0.1 CBC Comment EKG/XRAY/CT/US/VASC/MRI EKG : Additional Comment EKG interpreted myself shows time of 0420, rate 82, sinus rhythm, normal axis, no ST changes Medical Decision Making Findings Patient presents to the emergency room chief complaint of shortness of breath. Differentials include but are not limited to asthma, COPD, CHF, viral syndrome, pulmonary embolism therefore emergent labs ordered. Workup consistent with CHF exacerbation. Patient is saturating well. Discussed patient's labs in the elevation of his troponins. I rehashed what a troponin was in his significance and patient has acknowledged this but would still like to be discharged after offering admission. Patient demonstrates capacity and acknowledges risk of . EKG reassuring for no ST-elevation. The need to follow up with his doctor discussed as well as ER precautions. Departure Disposition: HOME / SELF CARE / HOMELESS Impression: Primary Impression: Acute on chronic diastolic heart failure Condition: Fair Discharge Instructions: Heart Failure, Diagnosis, Bcru-[id number]-[id number] Additional Instructions: Increase your Lasix by one tablet over the next two days to gently take off some additional fluid. Follow up with your doctor Referrals: NO PRIMARY CARE PROVIDER (PCP) Signature Scribe Signature: No scribe Attestation: The note accurately reflects work and decisions made by me.Gio Lee MD 07/29/25 05:37 GIO LEE MD Jul 29, 2025 04:36
--- NOTE | 2025-07-29 04:50 | RADIOLOGY REPORT ---
CHEST RADIOGRAPH Indication: CP Technique: Single frontal view of the chest was obtained COMPARISON: DI CHEST,SINGLE VIEW on DOS: 07/18/25 FINDINGS: Lines and Tubes: None Lungs: Mild diffuse increased prominence of the pulmonary vasculature. No evidence of focal consolidation. Pleura: No effusion. No pneumothorax. Cardiomediastinal contours: Unremarkable Bones: Unremarkable IMPRESSION: 1. Mild pulmonary vascular congestion.
[2025-07-29 05:17] LABS: MEAN PLATELET VOLUME 7.9 FL (7.4-10.4); RED CELL DISTRIBUTION WIDTH 15.7 % (11.5-14.5)
[2025-07-29 05:23] LABS: CREATININE 1.40 MG/DL (0.60-1.10); PRO BRAIN NATRIURETIC PEPTIDE 4276 PG/ML (0-125); TOTAL CARBON DIOXIDE 27.2 MMOL/L (24-32); eCRCL 61 ML/MIN; eGFR 52 ML/MIN
[2025-07-29] MEDS: furosemide 10 MG/1 ML 10ml inj IV ONE (05:41)
[2025-07-29 05:45] VITALS: BP 148/78; PULSE 79; RESP 22; TEMP 97.9; O2SAT 100
== END 2025-07-29 05:47 | disposition home or self-care (01) ==
LOC: ER 04:11
DX: I50.33 Acute on chronic diastolic (congestive) heart failure (principal); I25.2 Old myocardial infarction; F12.90 Cannabis use, unspecified, uncomplicated; Z87.442 Personal history of urinary calculi
CPT/HCPCS: 36415; 71045; 80048; 83880; 84484; 85025; 93005; 96374; 99285; J1938

== ENCOUNTER 2025-08-21 23:39 | Emergency (ER) | payer MEDICAID ==
[~2025-08-21] VITALS: Ht 177.8 cm; Wt 77.3 kg
[2025-08-21 23:47] VITALS: TEMP 97.7
--- NOTE | 2025-08-21 23:54 | ELECTROCARDIOGRAPH REPORT ---
[facility] Test Date: 2025-08-21 Test Time: 23:42:10 Pat Name: ADELE VERDUZCO Department: EMERGENCY ROOM Patient ID: [facility]-[id number] Room: Gender: M Premium Representative: GIANLUCA : 1970 Requested By: ANTHONY MUÑIZ Order Number: [id number] Reading MD: Measurements Intervals [place] Rate: 99 P: 54 CO: 156 QRS: -35 QRSD: 100 T: 71 QT: 390 QTc: 501 Interpretive Statements Sinus rhythm Left atrial enlargement Inferior infarct, old Abnormal lateral Q waves Prolonged QT interval Artifact in lead(s) II,III,aVF,V4,V5 and baseline wander in lead(s) V3 Please click the below link to view image of tracing.
--- NOTE | 2025-08-22 00:05 | Physician Documentation ---
History of Present Illness General Chief Complaint: Shortness of Breath Stated Complaint: SOB Time Seen by MD: 23:59 History of Present Illness Initial Comments Patient is a 55-year-old male with a history of CHF who presents with shortness of breath and orthopnea. Patient states he woke up proximally me an hour ago with shortness of breath. The patient states he has a history of CHF and he has been out of his medications. He states he took some Lasix for slightly worsening shortness of breath today and he states the medication that he took was his 's. The patient states he got significantly more short of breath after he woke up this evening. Patient denies any fevers or chills patient is a smoker he does not use inhalers. Patient's symptoms are moderate and persistent Medication Reconciliation Allergies: Coded Allergies: No Known Allergies (Unverified , 08/21/25) Scheduled Albuterol Sulfate (Ventolin Hfa), 2 PUFFS INH Q4HPRN Carvedilol* (Coreg*), 1 TAB PO Q12H Furosemide 40 MG (Lasix), 1 TAB PO DAILY Potassium Chloride* (K-Dur*), 1 TAB PO DAILY Miscellaneous Medications Home Med List (No Home Medications), (Reported) Past Medical History Past Medical History: Congestive Heart Failure, Kidney Stones Past Surgical History: no surgical history Alcohol Use: None Drug Use: marijuana Lives with: Spouse Lives In: Home Review of Systems All Other Systems at this time: Reviewed and Negative Physical Exam Physical Exam Vital Signs: Temperature: 97.7, Heart Rate: 98, Respiratory Rate: 24, Pulse Oximetry: 95, Weight: 77.270 Oxygen Flow Rate: 2.0 Physical Exam VITALS: Reviewed and as above. GENERAL: Alert, moderate respiratory distress HEENT: Normocephalic, atraumatic, PERRL, EOMI, dry mucosa, no erythema RESPIRATORY: Diminished breath sounds bilaterally with crackles at both bases CHEST: Patient has some intercostal as well as abdominal retractions moderate respiratory distress CV: Regular rate, rhythm, no edema, no murmur, No: JVD GI: Soft, non-tender, bowels sounds present, no rebound, guarding, or rigidity BACK: No CVA tenderness, or swelling MUSCULOSKELETAL: No deformities, no edema SKIN: Warm and dry, pale NEURO: Oriented x4, No motor or sensory deficit PSYCH: Normal mood and affect, no agitation Progress Results/Orders Results/Orders Orders - ANTHONY WAITE MD Chest,Single View (08/22/25 00:00) Saline Lock (08/22/25 00:00) Monitor (08/22/25 00:00) Oxygen (08/22/25 00:00) Svn Treatment (08/22/25 ) Completed Orders - ANTHONY WAITE MD Electrocardiogram (08/21/25 ) Cbc/Diff (08/22/25 00:00) MG (08/22/25 00:00) PBNP (08/22/25 00:00) Chest,Single View (08/22/25 00:00) BMP (08/22/25 00:00) Hs Troponin I W Calculations (08/22/25 00:00) Hs Troponin I W Calculations (08/22/25 02:00) Procalcitonin (08/22/25 00:00) Furosemide Inj (Lasix Inj) (08/22/25 00:05) Ipratropium/Albuterol Nebule (Ipratrop/A (08/22/25 00:05) Vital Signs 08/21/25 08/22/25 08/22/25 08/22/25 23:47 00:07 00:09 00:09 Temp 97.7 Pulse 98 86 Resp 24 16 16 B/P (MAP) 133/85 (101) Pulse Ox 95 94 95 O2 Delivery Nasal Cannula* O2 Flow Rate 2.0 2 2.0 FiO2 28 08/22/25 08/22/25 08/22/25 08/22/25 00:45 00:45 01:16 02:20 Pulse 83 84 76 77 Resp 19 16 16 18 B/P (MAP) 104/69 (81) 121/76 (91) Pulse Ox 96 97 97 96 O2 Delivery Nasal Cannula* Nasal Cannula* O2 Flow Rate 2 2 2.0 2.0 FiO2 28 08/22/25 03:11 Pulse 75 Resp 16 B/P (MAP) 105/67 Pulse Ox 98 Laboratory Tests Test 08/22/25 00:00 08/22/25 02:09 White Blood Count 8.0 Red Blood Count 5.06 Hemoglobin 14.4 Hematocrit 42.7 Mean Corpuscular Volume 84.3 Mean Corpuscular Hemoglobin 28.4 Mean Corpuscular Hemoglobin Concent 33.7 Red Cell Distribution Width 16.1 H Platelet Count 268 Mean Platelet Volume 7.6 Neutrophils (%) (Auto) 50.7 Lymphocytes (%) (Auto) 35.9 Monocytes (%) (Auto) 7.1 Eosinophils (%) (Auto) 5.2 Basophils (%) (Auto) 1.1 H Neutrophils # (Auto) 4.1 Lymphocytes # (Auto) 2.9 Monocytes # (Auto) 0.6 Eosinophils # (Auto) 0.4 Basophils # (Auto) 0.1 CBC Comment Sodium Level 140 Potassium Level 4.0 Chloride Level 106 Carbon Dioxide Level 28.6 Anion Gap 5 L Blood Urea Nitrogen 19 H Creatinine 1.62 H Estimated GFR/1.73 m2 44 BUN/Creatinine Ratio 11.7 Glucose Level 120 H Calcium Level 8.5 Magnesium Level 2.4 Troponin I High Sensitivity 178 *H 225 *H Pro-B-Type Natriuretic Peptide 3737 H Albumin 3.6 Procalcitonin < 0.05 Chemistry Comments Troponin I High Sens Percent Delta 26 Troponin I Hi Sens Absolute Change 47 EKG/XRAY/CT/US/VASC/MRI Chest X-Ray : Additional Comments Patient: ADELE VERDUZCO JR Medical Record: [id number] [facility] : 1970, Age: 55 Sex: Male Location: ER Patient Status: [facility] ER Service Date/Time: 08/22/25 Ordering Physician: ANTHONY WAITE MD Exam: CHEST,SINGLE VIEW CHEST RADIOGRAPH Indication: CP Technique: Single frontal view of the chest was obtained COMPARISON: DI CHEST,SINGLE VIEW on DOS: 07/29/25, DI CHEST,SINGLE VIEW on DOS: 07/18/25 FINDINGS: Cardiac silhouette is borderline in size. Diffuse prominence of the pulmonary vasculature. No dense focal airspace disease. No significant pleural effusions. Bones and soft tissues demonstrate no significant abnormality. IMPRESSION: Borderline cardiomegaly with mild pulmonary vascular congestion. Electronically Signed by:HAL ESPINOZA MD Date & Time: 08/22/25 0027 Dictated by: HAL ESPINOZA MD Dictation date and time: 08/22/25 0009 Primary Care Provider: NO PRIMARY CARE PROVIDER cc: ANTHONY WAITE MD ~ Medical Decision Making Additional information obtaine: old records Findings The patient's EKG is a sinus rhythm with a normal axis rated [address]- elevation there slightly elevated T-waves there is no ST depression and there were nonspecific ST abnormalities the patient's heart rate was 99 the EKG was interpreted as abnormal time of the interpretation was 01/22/2047. The patient has a history of CHF and noncompliance with medication, the patient has been short of breath today. The patient has states he has been short of breath over last several days got suddenly more short of breath tonight. Patient has been using his 's medications. The patient has a history of an elevated troponin in the past he had significant improvement with Lasix in the emergency department he was offered admission to the hospital in his refusing. In the past the patient has left AMA prior to being discharged with appropriate medications. The patient will be discharged on carvedilol Lasix and potassium he has been advised to follow up as an outpatient. He has also been advised to return if he develops any chest pain or worsening of symptoms. Prior hospitalizations have been reviewed patient's chest x-ray was reviewed his EKG was reviewed his clinical research monitor was interpreted as a sinus rhythm in his pulse oximetry was interpreted as low and abnormal. Differential Diagnosis Pneumonia CHF pleural effusions Departure Time of Disposition: Disposition: HOME / SELF CARE / HOMELESS Impression: Primary Impression: Congestive heart failure Qualified Codes: I50.23 - Acute on chronic systolic (congestive) heart failure Additional Impression: Elevated troponin Discharge Instructions: Heart Failure, Diagnosis, [id number] Referrals: NO PRIMARY CARE PROVIDER (PCP) Prescriptions Albuterol Sulfate (Ventolin Hfa) 90 Mcg Hfa.aer.ad 2 PUFFS INH Q4HPRN, #1 INHALER Prov: ANTHONY WAITE MD 08/22/25 Carvedilol* (Coreg*) 12.5 Mg Tablet 1 TAB PO Q12H for 30 Days, #60 TAB Prov: ANTHONY WAITE MD 08/22/25 Potassium Chloride* (K-Dur*) 20 Meq Tab.prt.sr 1 TAB PO DAILY, #30 TAB Prov: ANTHONY WAITE MD 08/22/25 Furosemide 40 MG (Lasix) 40 Mg Tablet 1 TAB PO DAILY for 30 Days, #30 TAB Prov: ANTHONY WAITE MD 08/22/25 Signature Scribe Signature: no scribe Attestation: The note accurately reflects work and decisions made by me.Anthony Waite MD 08/24/25 07:39 ANTHONY WAITE MD Aug 22, 2025 00:05
[2025-08-22 00:10] LABS: MEAN PLATELET VOLUME 7.6 FL (7.4-10.4); RED CELL DISTRIBUTION WIDTH 16.1 % (11.5-14.5)
--- NOTE | 2025-08-22 00:30 | RADIOLOGY REPORT ---
CHEST RADIOGRAPH Indication: CP Technique: Single frontal view of the chest was obtained COMPARISON: DI CHEST,SINGLE VIEW on DOS: 07/29/25, DI CHEST,SINGLE VIEW on DOS: 07/18/25 FINDINGS: Cardiac silhouette is borderline in size. Diffuse prominence of the pulmonary vasculature. No dense focal airspace disease. No significant pleural effusions. Bones and soft tissues demonstrate no significant abnormality. IMPRESSION: Borderline cardiomegaly with mild pulmonary vascular congestion.
[2025-08-22] MEDS: furosemide 10 MG/1 ML 10ml inj IV ONE (00:31)
[2025-08-22 00:37] LABS: CREATININE 1.62 MG/DL (0.60-1.10); PRO BRAIN NATRIURETIC PEPTIDE 3737 PG/ML (0-125); TOTAL CARBON DIOXIDE 28.6 MMOL/L (24-32); eCRCL 53 ML/MIN; eGFR 44 ML/MIN
[2025-08-22] MEDS: ipratropium/albuterol 3ml nebule NEB ONE (00:40)
[2025-08-22 00:45] VITALS: PULSE 83; PULSE 84; RESP 16; RESP 19; O2SAT 96; O2SAT 97
[2025-08-22] MEDS ORDERED: NO HOME MEDS (01:21)
[2025-08-22] MEDS ORDERED: POTA-207 PO (02:50)
[2025-08-22] MEDS ORDERED: CARV-50 PO (02:50)
[2025-08-22] MEDS ORDERED: FURO40TA4 PO (02:50)
[2025-08-22] MEDS ORDERED: ALBU18HF2 INH (02:50)
[2025-08-22 03:11] VITALS: BP 105/67; PULSE 75; RESP 16; O2SAT 98
== END 2025-08-22 03:16 | disposition home or self-care (01) ==
LOC: ER 23:39
DX: I50.9 Heart failure, unspecified (principal); R79.89 Other specified abnormal findings of blood chemistry; F12.90 Cannabis use, unspecified, uncomplicated; Z87.442 Personal history of urinary calculi; Z79.899 Other long term (current) drug therapy
CPT/HCPCS: 36415; 71045; 80048; 83735; 83880; 84145; 84484; 85025; 93005; 94640; 96374; 99285; J1938; 94760

== ENCOUNTER 2025-09-21 03:34 | Emergency (ER) | payer MEDICAID ==
[~2025-09-21] VITALS: Ht 177.8 cm; Wt 81.1 kg
[~2025-09-21 03:34] MED LIST: ALBU18HF2 INH; CARV-50 PO; FURO40TA4 PO; NO HOME MEDS; POTA-207 PO
[2025-09-21 03:37] VITALS: BP 139/93; PULSE 83; RESP 16; O2SAT 96
--- NOTE | 2025-09-21 03:43 | ELECTROCARDIOGRAPH REPORT ---
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 ÓSCAR Stiles Measurements Intervals [place] Rate: 84 P: 47 CA: 159 QRS: 33 QRSD: 112 T: 71 QT: 418 QTc: 495 Interpretive Statements Sinus rhythm LAE, consider biatrial enlargement Incomplete right bundle branch block Inferior infarct, old Abnormal lateral Q waves Electronically Signed On 09-21-2025 12:59:[address] ÓSCAR Stiles Please click the below link to view image of tracing.
--- NOTE | 2025-09-21 03:52 | Physician Documentation ---
History of Present Illness ~ Chief Complaint: Shortness of Breath Stated Complaint: SOB Time Seen by MD: 03:52 HPI 55-year-old male, history of CHF and COPD, who presents with shortness of breath He tells me that yesterday he took his last dose of his medications, and now was out of his Lasix and breathing treatments. He does not have an appointment with his primary care doctor until November 17. Overnight he became more short of breath. He tells me that he felt like he could not breathe and his chest was very tight. Now that he is here in the ED, he states that he is feeling somewhat better. He wonders if he just freaked out. He says it gets very anxious about his heart and not having his medications. No fevers or chills. No productive cough no current chest pain. No new leg swelling or pain. Medication Reconciliation Allergies: Coded Allergies: No Known Allergies (Unverified , 08/21/25) Scheduled Albuterol Sulfate (Ventolin Hfa), 2 PUFFS INH Q4HPRN Carvedilol* (Coreg*), 1 TAB PO Q12H Furosemide 40 MG (Lasix), 1 TAB PO DAILY Potassium Chloride* (K-Dur*), 1 TAB PO DAILY Miscellaneous Medications Home Med List (No Home Medications), (Reported) Past Medical History Past Medical History: Congestive Heart Failure, Kidney Stones Past Surgical History: no surgical history Patient History: FH: diabetes mellitus MOTHER, , Cause: Diabetes mellitus, Not a twin FH: kidney failure FATHER, , Cause: Renal failure, Not a twin Alcohol Use: None Drug Use: marijuana Lives with: Spouse Lives In: Home Review of Systems Constitutional: Denies: fever Respiratory: Reports: shortness of breath Cardiovascular: Denies: chest pain Physical Exam Vital Signs: Temperature: 97.7, Heart Rate: 83, Respiratory Rate: 16, BP: 139/93, Pulse Oximetry: 96, Weight: 81.100 Oxygen Flow Rate: 0 Physical Exam General: This is an anxious appearing in middle-aged man, at bedside HEENT: Atraumatic, oropharynx is moist Heart: Regular rate and rhythm, normal-appearing peripheral perfusion Lungs: Few scattered expiratory wheezes, but mostly clear, normal work of breathing, oxygen saturations 99% on room air Extremities: Warm and well-perfused, no significant edema Neuro: Alert and oriented Psychiatric: Appears mildly anxious about his condition but is cooperative with exam Progress Results/Orders Results/Orders Orders - JAKE ROBERTO MD Chest,Single View (09/21/25 03:36) Monitor (09/21/25 03:36) Saline Lock (09/21/25 03:36) Oxygen (09/21/25 03:36) Hs Troponin I W Calculations (09/21/25 03:36) Hs Troponin I W Calculations (09/21/25 05:36) Hs Troponin I W Calculations (09/21/25 06:36) Completed Orders - JAKE ROBERTO MD Chest,Single View (09/21/25 03:36) Cbc/Diff (09/21/25 03:36) BMP (09/21/25 03:36) PBNP (09/21/25 03:36) Electrocardiogram (09/21/25 03:36) Vital Signs 09/21/25 09/21/25 03:37 04:15 Temp 97.7 Pulse 83 Resp 16 B/P (MAP) 139/93 Pulse Ox 96 O2 Flow Rate 0 Laboratory Tests Test 09/21/25 04:00 White Blood Count 8.7 Red Blood Count 5.04 Hemoglobin 14.3 Hematocrit 42.6 Mean Corpuscular Volume 84.6 Mean Corpuscular Hemoglobin 28.3 Mean Corpuscular Hemoglobin Concent 33.5 Red Cell Distribution Width 15.5 H Platelet Count 244 Mean Platelet Volume 8.0 Neutrophils (%) (Auto) 64.0 Lymphocytes (%) (Auto) 24.4 Monocytes (%) (Auto) 7.4 Eosinophils (%) (Auto) 3.1 Basophils (%) (Auto) 1.1 H Neutrophils # (Auto) 5.6 Lymphocytes # (Auto) 2.1 Monocytes # (Auto) 0.6 Eosinophils # (Auto) 0.3 Basophils # (Auto) 0.1 CBC Comment Sodium Level 142 Potassium Level 4.1 Chloride Level 106 Carbon Dioxide Level 29.6 Anion Gap 6 L Blood Urea Nitrogen 19 H Creatinine 1.41 H Estimated GFR/1.73 m2 52 BUN/Creatinine Ratio 13.5 Glucose Level 106 H Calcium Level 8.5 Troponin I High Sensitivity 144 *H Pro-B-Type Natriuretic Peptide 2701 H Albumin 3.5 Chemistry Comments EKG/XRAY/CT/US/VASC/MRI EKG : Additional Comment I personally interpreted the EKG and this shows: Sinus rhythm, rate 84, QTC 495, incomplete right bundle-branch block, inferior Q-waves Chest X-Ray : Additional Comments I personally interpreted the x-ray, and it shows: No focal consolidation, no significant pulmonary edema, chronic and unchanged appearing interstitial thickening Medical Decision Making Additional information obtaine: old records Findings Reviewed past ER visits. The patient has been seen in the past for similar presentations. He generally does not want to be admitted to the hospital. He improves with Lasix and breathing treatments. Heart Score: 4 Differential Dx:Considerations: Include: asthma, bronchitis, cardiogenic shock, CHF, COPD, dysrhythmia, myocardial infarction, panic attack, upper resp. i nfection Additional Infomation The patient presents with shortness of breath. Per his history and exam, I suspect that anxiety is playing some part of his presentation. He does not have clinical findings to suggest volume overload or CHF exacerbation. He does not have significant wheezing or hypoxia to suggest COPD exacerbation. He has no fever other infectious type symptoms and chest x-ray does not show a pneumonia. His workup was otherwise unremarkable. By time of my evaluation he states he is actually feeling better and his breathing has improved. He will be given a prescription for his medications, with refills to help him until he can see his primary care doctor in November. Return precautions given. Departure Time of Disposition: 04:16 Disposition: HOME / SELF CARE / HOMELESS Impression: Primary Impression: Shortness of breath Condition: Improved Discharge Instructions: Heart Failure Medicines Referrals: NO PRIMARY CARE PROVIDER (PCP) Prescriptions Albuterol Sulfate (Ventolin Hfa) 90 Mcg Hfa.aer.ad 2 PUFFS INH Q4HPRN, #1 INHALER 2 Refills Prov: JAKE ROBERTO MD 09/21/25 Carvedilol* (Coreg*) 12.5 Mg Tablet 1 TAB PO Q12H for 30 Days, #60 TAB 2 Refills Prov: JAKE ROBERTO MD 09/21/25 Potassium Chloride* (K-Dur*) 20 Meq Tab.prt.sr 1 TAB PO DAILY, #30 TAB 2 Refills Prov: JAKE ROBERTO MD 09/21/25 Furosemide 40 MG (Lasix) 40 Mg Tablet 1 TAB PO DAILY for 30 Days, #30 TAB 2 Refills Prov: JAKE ROBERTO MD 09/21/25 Education Educated: Patient, Family Educated regarding: diagnosis, treatment, need for follow up Signature Scribe Signature: na Attestation: JAKE Palacios MD Sep 21, 2025 03:52
--- NOTE | 2025-09-21 04:07 | RADIOLOGY REPORT ---
MEDICAL RECORDS NUMBER: [id number] PROCEDURE: DI CHEST,SINGLE VIEW DATE: 09/21/2025 03:53 AM HISTORY: CP Views:1 COMPARISON: DI CHEST,SINGLE VIEW on DOS: 08/22/25, DI CHEST,SINGLE VIEW on DOS: 07/29/25, DI CHEST,SINGLE VIEW on DOS: 07/18/25 FINDINGS/IMPRESSION: Lungs: Diffuse minor chronic changes of the lungs are noted. No acute lung pathology is seen. Mediastinum: Mediastinal structures appear unremarkable... Skeletal: The skeletal structures appear unremarkable.
[2025-09-21 04:13] LABS: MEAN PLATELET VOLUME 8.0 FL (7.4-10.4); RED CELL DISTRIBUTION WIDTH 15.5 % (11.5-14.5)
[2025-09-21] MEDS ORDERED: ALBU18HF2 INH (04:20)
[2025-09-21] MEDS ORDERED: POTA-207 PO (04:20)
[2025-09-21] MEDS ORDERED: CARV-50 PO (04:20)
[2025-09-21] MEDS ORDERED: FURO40TA4 PO (04:20)
[2025-09-21 04:37] LABS: CREATININE 1.41 MG/DL (0.60-1.10); PRO BRAIN NATRIURETIC PEPTIDE 2701 PG/ML (0-125); TOTAL CARBON DIOXIDE 29.6 MMOL/L (24-32); eCRCL 60 ML/MIN; eGFR 52 ML/MIN
[2025-09-21 05:14] VITALS: TEMP 97.7
[2025-09-22] MEDS ORDERED: PRED20TA PO (02:51)
== END 2025-09-21 05:21 | disposition home or self-care (01) ==
LOC: ER 03:35
DX: R06.02 Shortness of breath (principal); J44.9 Chronic obstructive pulmonary disease, unspecified; F12.90 Cannabis use, unspecified, uncomplicated; I50.9 Heart failure, unspecified; Z87.442 Personal history of urinary calculi; Z79.899 Other long term (current) drug therapy
CPT/HCPCS: 36415; 71045; 80048; 83880; 84484; 85025; 93005; 99285